=== PATIENT | male | born 1980 | race Caucasian/White ===

== ENCOUNTER 2019-05-20 10:45 | Emergency (ER) | payer SELFPAY ==
[~2019-05-20] VITALS: Ht 167.6 cm; Wt 70.3 kg
[2019-05-20 10:55] VITALS: BP 131/76
[2019-05-20 11:53] LABS: APPEARANCE,URINE CLEAR (CLEAR); BILIRUBIN,URINE NEGATIVE (NEGATIVE); BLOOD, URINE NEGATIVE (NEGATIVE); COLOR,URINE YELLOW (YELLOW); LEUKOCYTE ESTERASE ,URINE NEGATIVE (NEGATIVE); NITRITE, URINE NEGATIVE (NEGATIVE); PH,URINE 5.5 (5.0-9.0); UGLUCOSE NEGATIVE (NEGATIVE)
[2019-05-20] MEDS ORDERED: KETOROLAC 30 MG/ML VIAL IM ONE (12:30)
[2019-05-20 13:01] VITALS: BP 131/76
== END 2019-05-20 13:01 | disposition home or self-care (01) ==
LOC: MED 10:45
DX: N50.812 Left testicular pain (principal)
CPT/HCPCS: 76870; 81003; 96372; 99284; J1885; Q0092